=== PATIENT | female | born 1990 | race Two or more races ===

== ENCOUNTER 2022-08-17 23:00 | Emergency (ER) | payer OTHER ==
[~2022-08-17] VITALS: Ht 165.1 cm; Wt 68.0 kg
== END 2022-08-18 03:15 | disposition home or self-care (01) ==
LOC: ER 23:00
DX: S61.305A Unspecified open wound of left ring finger with damage to nail, initial encounter (principal); W21.89XA Striking against or struck by other sports equipment, initial encounter; Y93.89 Activity, other specified; Y92.832 Beach as the place of occurrence of the external cause